=== PATIENT | male | born 1955 | race Two or more races ===

== ENCOUNTER 2018-11-23 16:26 | Emergency (ER) | payer MEDICARE, MEDICAID ==
[~2018-11-23] VITALS: Ht 172.7 cm; Wt 109.0 kg
[2018-11-23] MEDS ORDERED: HYDROcodone/acetaminophen 5mg/325mg tablet PO ONE (18:35)
[2018-11-23] MEDS ORDERED: bacitracin 15gm ointment TP ONE (18:35)
--- NOTE | 2018-11-23 19:08 | NUR ---
PT REFUSED TREATEMENT OF CLEANING STOMA, PT PLACED THE COLOSTOMY BAG HIMSELF. PT REFUSED TO REMOVE THE COLOSTOMY BAG FOR CLEANING. PT WAS GIVNE BACITRACIN AND ZINC OZIDE WITH INSTRUCTION ON HOW TO USE IT AT HIS NEXT COLOSTOMY BAG CHANGE.
[2018-11-23 19:23] VITALS: BP 176/100
[2018-11-23] MEDS ORDERED: zinc oxide ointment 30gm tube TP SCH (21:00)
== END 2018-11-23 19:25 | disposition home or self-care (01) ==
LOC: ER 16:27
DX: K94.09 Other complications of colostomy (principal); K94.19 Other complications of enterostomy; L98.9 Disorder of the skin and subcutaneous tissue, unspecified; L98.499 Non-pressure chronic ulcer of skin of other sites with unspecified severity; Z88.6 Allergy status to analgesic agent; Z88.8 Allergy status to other drugs, medicaments and biological substances
CPT/HCPCS: 99284

== ENCOUNTER 2019-04-08 21:03 | Inpatient (IN) | payer MEDICARE, MEDICAID ==
[~2019-04-08] VITALS: Ht 175.3 cm; Wt 106.4 kg
[2019-04-08] MEDS ORDERED: dicyclomine 10 MG capsule PO ONE (22:55)
[2019-04-08] MEDS ORDERED: oxyCODONE/APAP 10/325mg tablet PO ONE (22:55)
[2019-04-08 23:13] LABS: BASOPHILS % (AUTO) 0.3 % (0-1); EOSINOPHILS # (AUTO) 0.1 X10'3 (0-0.9); EOSINOPHILS % (AUTO) 0.4 % (0-6); HEMATOCRIT 43.4 % (42.0-52.0); HEMOGLOBIN 14.3 g/dl (14.0-17.9); LYMPHOCYTES # (AUTO) 1.4 X10'3 (1.1-4.8); LYMPHOCYTES % (AUTO) 10.9 % (21-51); MEAN CORPUSCULAR HEMOGLOBIN 29.5 PG (27.0-31.0); MEAN CORPUSCULAR VOLUME 89.4 FL (78-98); MEAN PLATELET VOLUME 10.1 FL (7.4-10.4); MONOCYTES % (AUTO) 7.9 % (2-12); NEUTROPHILS # (AUTO) 10.6 X10'3 (1.8-7.7); NEUTROPHILS % (AUTO) 80.5 % (42-75); PLATELET COUNT 175 X10'3 (140-440); RED BLOOD COUNT 4.86 X10'6 (4.70-6.10); RED CELL DISTRIBUTION WIDTH 14.9 % (11.5-14.5); WHITE BLOOD COUNT 13.1 X10'3 (4.5-11.0)
[2019-04-08 23:22] LABS: ALANINE AMINOTRANSFERASE 21 U/L (12-78); ALBUMIN 3.6 G/DL (3.4-5.0); ALBUMIN/GLOBULIN RATIO 0.9 (1.1-1.5); ALKALINE PHOSPHATASE 75 IU/L (46-116); ANION GAP 12 (8-16); ASPARTATE AMINO TRANSFERASE 10 U/L (10-37); BLOOD UREA NITROGEN 34 MG/DL (7-18); CALCIUM 8.3 MG/DL (8.5-10.1); CHLORIDE 105 MMOL/L (99-107); CREATININE 2.13 MG/DL (0.60-1.10); GLUCOSE 108 MG/DL (70-104); POTASSIUM 3.5 MMOL/L (3.5-5.1); SODIUM 138 MMOL/L (135-145); TOTAL CARBON DIOXIDE 21.2 MMOL/L (24-32); TOTAL PROTEIN 7.5 G/DL (6.4-8.2); eGFR 31 ML/MIN
[2019-04-09] MEDS ORDERED: piperacillin/tazo 3.375gm/50ml 50 ML IV ONE (01:55)
[2019-04-09] MEDS ORDERED: ondansetron/PF 4mg/2ml inj IV ONE (01:55)
[2019-04-09] MEDS ORDERED: HYDROmorphone 1 mg/ml syringe IV ONE (01:55)
[2019-04-09] MEDS ORDERED: morphine 10mg/ml inj. IV ONE (02:05)
[2019-04-09] MEDS ORDERED: mag hydrox/Alum hydrox/simeth 30ml oral suspension PO PRN (02:45)
[2019-04-09] MEDS ORDERED: magnesium hydroxide 30ml (MOM) UD suspension PO PRN (02:45)
[2019-04-09] MEDS ORDERED: acetaminophen 325mg tablet PO PRN ×2 (02:45)
[2019-04-09] MEDS ORDERED: morphine 2 MG/ML inj. syringe IV PRN (02:45)
[2019-04-09] MEDS ORDERED: ondansetron/PF 4mg/2ml inj IV PRN (02:45)
[2019-04-09] MEDS ORDERED: HYDROcodone/acetaminophen 5mg/325mg tablet PO PRN (02:45)
[2019-04-09 03:35] VITALS: BP 152/85
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
[2019-04-09] MEDS: dextrose 5%-1/2 normal saline 1,000 ML IV SCH ×2 (04:02→15:13)
[2019-04-09] MEDS: HYDROcodone/acetaminophen 10/325mg tab PO PRN ×3 (06:27→17:40)
--- NOTE | 2019-04-09 06:30 | NUR ---
Problems reprioritized. Patient report given, questions answered & plan of care reviewed with Dyana PEREZ.
[2019-04-09 07:00] VITALS: BP 144/72
[2019-04-09] MEDS: heparin, porcine 5000 units/ml vial SQ SCH ×2 (08:00→20:49)
[2019-04-09] MEDS ORDERED: ATEN-169 PO (08:12)
[2019-04-09] MEDS ORDERED: WARF1TAB83 PO (08:13)
[2019-04-09] MEDS ORDERED: ATOR10TA70 PO (08:14)
[2019-04-09] MEDS ORDERED: HYDR-3972 PO (08:14)
[2019-04-09] MEDS ORDERED: CHOL2000 PO (08:15)
[2019-04-09] MEDS ORDERED: VITA1TAB20 PO (08:15)
[2019-04-09] MEDS ORDERED: VITE1000C PO (08:16)
[2019-04-09] MEDS: morphine 2 MG/ML inj. syringe IV PRN ×2 (08:29→20:53)
[2019-04-09] MEDS ORDERED: bisacodyl 10mg suppository rectal RC PRN (11:30)
[2019-04-09] MEDS: LORazepam 1 MG tablet PO PRN (11:56)
[2019-04-09 12:12] VITALS: BP 129/70
[2019-04-09 13:01] LABS: BASOPHILS # (AUTO) 0.1 X10'3 (0-0.2); BASOPHILS % (AUTO) 0.5 % (0-1); EOSINOPHILS # (AUTO) 0.3 X10'3 (0-0.9); EOSINOPHILS % (AUTO) 2.4 % (0-6); HEMATOCRIT 40.4 % (42.0-52.0); HEMOGLOBIN 13.4 g/dl (14.0-17.9); LYMPHOCYTES # (AUTO) 2.1 X10'3 (1.1-4.8); MEAN CORPUSCULAR HEMOGLOBIN 29.9 PG (27.0-31.0); MEAN CORPUSCULAR HGB CONC 33.3 g/dL (33.0-36.5); MEAN CORPUSCULAR VOLUME 89.8 FL (78-98); MEAN PLATELET VOLUME 10.1 FL (7.4-10.4); MONOCYTES # (AUTO) 1.4 X10'3 (0-0.9); MONOCYTES % (AUTO) 11.2 % (2-12); NEUTROPHILS # (AUTO) 8.6 X10'3 (1.8-7.7); NEUTROPHILS % (AUTO) 68.9 % (42-75); PLATELET COUNT 175 X10'3 (140-440); WHITE BLOOD COUNT 12.5 X10'3 (4.5-11.0)
[2019-04-09 13:12] LABS: ANION GAP 12 (8-16); BLOOD UREA NITROGEN 33 MG/DL (7-18); BUN/CREATININE RATIO 15.3 (5.4-32.0); CHLORIDE 104 MMOL/L (99-107); CREATININE 2.16 MG/DL (0.60-1.10); GLUCOSE 109 MG/DL (70-104); POTASSIUM 3.3 MMOL/L (3.5-5.1); SODIUM 136 MMOL/L (135-145); TOTAL CARBON DIOXIDE 20.3 MMOL/L (24-32)
[2019-04-09 13:13] LABS: ALANINE AMINOTRANSFERASE 20 U/L (12-78); ALBUMIN 3.3 G/DL (3.4-5.0); ALBUMIN/GLOBULIN RATIO 0.9 (1.1-1.5); ALKALINE PHOSPHATASE 72 IU/L (46-116); ASPARTATE AMINO TRANSFERASE 12 U/L (10-37); BILIRUBIN,TOTAL 0.8 MG/DL (0.1-1.0); CALCIUM 8.2 MG/DL (8.5-10.1); TOTAL PROTEIN 6.9 G/DL (6.4-8.2); eGFR 31 ML/MIN
--- NOTE | 2019-04-09 18:43 | NUR ---
Problems reprioritized. Patient report given, questions answered & plan of care reviewed with Juan C PEREZ.
--- NOTE | 2019-04-09 19:02 | NUR ---
Patient in room [facility]. I have received report from Dyana PEREZ and had the opportunity to ask questions and assume patient care.
[2019-04-09 20:00] VITALS: BP 116/65
--- NOTE | 2019-04-09 20:00 | NUR ---
patient has colostomy but is also having bowel movements out of rectum, no sign og blood in stools, colostomy putting out minimal small amount of stool Addendum: 04/09/19 at 2316 by Juan C Schuster RN Amended: Links added.
[2019-04-09] MEDS: docusate sod 100mg capsule PO SCH (20:47)
[2019-04-09] MEDS: diatr meglu/diatrizoate 30ml oral sol.-(3 dose) bottle PO SCH (20:51)
[2019-04-09] MEDS ORDERED: potassium Cl 20 mEq SR tablet PO PRN ×2 (22:50)
[2019-04-09] MEDS ORDERED: potassium CL 10mEq/100ml bag 100 ML IV PRN (22:50)
[2019-04-10] VITALS: BP 151/83
[2019-04-10] MEDS: dextrose 5%-1/2 normal saline 1,000 ML IV SCH ×3 (01:04→19:40)
[2019-04-10] MEDS: morphine 2 MG/ML inj. syringe IV PRN ×4 (01:06→19:38)
[2019-04-10 05:30] LABS: BASOPHILS # (AUTO) 0.1 X10'3 (0-0.2); BASOPHILS % (AUTO) 0.9 % (0-1); EOSINOPHILS # (AUTO) 0.3 X10'3 (0-0.9); EOSINOPHILS % (AUTO) 2.8 % (0-6); HEMATOCRIT 40.7 % (42.0-52.0); HEMOGLOBIN 13.5 g/dl (14.0-17.9); MEAN CORPUSCULAR HEMOGLOBIN 29.9 PG (27.0-31.0); MEAN CORPUSCULAR HGB CONC 33.3 g/dL (33.0-36.5); MEAN CORPUSCULAR VOLUME 89.7 FL (78-98); MEAN PLATELET VOLUME 10.2 FL (7.4-10.4); MONOCYTES # (AUTO) 0.9 X10'3 (0-0.9); MONOCYTES % (AUTO) 10.2 % (2-12); NEUTROPHILS % (AUTO) 64.1 % (42-75); PLATELET COUNT 157 X10'3 (140-440); RED BLOOD COUNT 4.53 X10'6 (4.70-6.10); RED CELL DISTRIBUTION WIDTH 14.7 % (11.5-14.5); WHITE BLOOD COUNT 9.3 X10'3 (4.5-11.0)
--- NOTE | 2019-04-10 06:22 | NUR ---
Problems reprioritized. Patient report given, questions answered & plan of care reviewed with Susan PEREZ.
[2019-04-10 06:36] LABS: GLUCOSE 114 MG/DL (70-104); POTASSIUM 3.6 MMOL/L (3.5-5.1); SODIUM 139 MMOL/L (135-145)
[2019-04-10 06:37] LABS: ALBUMIN 3.1 G/DL (3.4-5.0); ANION GAP 10 (8-16); BLOOD UREA NITROGEN 25 MG/DL (7-18); BUN/CREATININE RATIO 12.5 (5.4-32.0); CALCIUM 9.1 MG/DL (8.5-10.1); CHLORIDE 107 MMOL/L (99-107); MAGNESIUM 2.2 MG/DL (1.5-2.4); TOTAL CARBON DIOXIDE 21.6 MMOL/L (24-32); eGFR 34 ML/MIN
[2019-04-10] MEDS: diatr meglu/diatrizoate 30ml oral sol.-(3 dose) bottle PO SCH ×2 (07:16→10:26)
[2019-04-10 07:22] VITALS: BP 113/59
[2019-04-10] MEDS: heparin, porcine 5000 units/ml vial SQ SCH ×2 (08:00→19:39)
[2019-04-10] MEDS: docusate sod 100mg capsule PO SCH ×2 (08:00→20:00)
[2019-04-10] MEDS ORDERED: pneumococcal 23-VAL P-sac vacc 25 mcg/0.5ml vial IMVAC ONE (10:00)
[2019-04-10 11:00] VITALS: BP 125/75
[2019-04-10] MEDS: HYDROcodone/acetaminophen 10/325mg tab PO PRN ×3 (11:10→21:44)
[2019-04-10] MEDS ORDERED: mineral oil 133ml enema RC PRN (17:00)
[2019-04-10 20:00] VITALS: BP 122/70
[2019-04-11] VITALS: BP 133/76
[2019-04-11] MEDS: HYDROcodone/acetaminophen 10/325mg tab PO PRN ×4 (01:59→21:46)
[2019-04-11] MEDS: morphine 2 MG/ML inj. syringe IV PRN ×2 (05:32→17:26)
[2019-04-11 06:18] LABS: ALBUMIN 2.8 G/DL (3.4-5.0); ANION GAP 11 (8-16); BLOOD UREA NITROGEN 21 MG/DL (7-18); BUN/CREATININE RATIO 12.6 (5.4-32.0); CALCIUM 8.1 MG/DL (8.5-10.1); CHLORIDE 110 MMOL/L (99-107); CREATININE 1.67 MG/DL (0.60-1.10); GLUCOSE 102 MG/DL (70-104); POTASSIUM 3.6 MMOL/L (3.5-5.1); SODIUM 142 MMOL/L (135-145); TOTAL CARBON DIOXIDE 21.4 MMOL/L (24-32); eGFR 41 ML/MIN
--- NOTE | 2019-04-11 06:22 | NUR ---
Patient in room [facility]. I have received report from ANA Rivas and had the opportunity to ask questions and assume patient care.
[2019-04-11 07:04] VITALS: BP 160/76
[2019-04-11 07:09] LABS: BASOPHILS # (AUTO) 0.1 X10'3 (0-0.2); BASOPHILS % (AUTO) 0.9 % (0-1); EOSINOPHILS # (AUTO) 0.4 X10'3 (0-0.9); EOSINOPHILS % (AUTO) 6.1 % (0-6); HEMATOCRIT 40.1 % (42.0-52.0); HEMOGLOBIN 13.3 g/dl (14.0-17.9); LYMPHOCYTES # (AUTO) 2.2 X10'3 (1.1-4.8); LYMPHOCYTES % (AUTO) 32.1 % (21-51); MEAN CORPUSCULAR HEMOGLOBIN 29.7 PG (27.0-31.0); MEAN CORPUSCULAR HGB CONC 33.1 g/dL (33.0-36.5); MEAN CORPUSCULAR VOLUME 89.7 FL (78-98); MEAN PLATELET VOLUME 10.3 FL (7.4-10.4); MONOCYTES # (AUTO) 0.6 X10'3 (0-0.9); MONOCYTES % (AUTO) 8.7 % (2-12); NEUTROPHILS # (AUTO) 3.5 X10'3 (1.8-7.7); NEUTROPHILS % (AUTO) 52.2 % (42-75); PLATELET COUNT 156 X10'3 (140-440); RED BLOOD COUNT 4.47 X10'6 (4.70-6.10); RED CELL DISTRIBUTION WIDTH 15.2 % (11.5-14.5); WHITE BLOOD COUNT 6.7 X10'3 (4.5-11.0)
--- NOTE | 2019-04-11 08:00 | NUR ---
Notified Dr. Mahajan of patient's coumadin being held, as well as atenolol. Per Dr. Mahajan, will continue to hold coumadin and continue the atenolol on his med rec.
[2019-04-11] MEDS ORDERED: ATEN-169 PO ×2 (08:19→08:20)
[2019-04-11] MEDS: heparin, porcine 5000 units/ml vial SQ SCH ×2 (08:24→20:15)
[2019-04-11] MEDS: docusate sod 100mg capsule PO SCH ×2 (08:24→20:00)
[2019-04-11] MEDS: dextrose 5%-1/2 normal saline 1,000 ML IV SCH ×3 (08:28→22:00)
[2019-04-11 11:00] VITALS: BP 112/55
[2019-04-11] MEDS: atenolol 50mg tablet PO SCH (11:32)
[2019-04-11] MEDS ORDERED: hyoscyamine 0.125mg TAB.SUBL SL PRN (14:45)
[2019-04-11] MEDS ORDERED: PEG 3350/Na sulf,bicarb,Cl/KCl oral sol 4 liter bottle PO ONE (15:00)
--- NOTE | 2019-04-11 18:30 | NUR ---
Problems reprioritized. Patient report given, questions answered & plan of care reviewed with Whitney Olivarez RN.
--- NOTE | 2019-04-11 18:45 | NUR ---
Problems reprioritized. Patient report given, questions answered & plan of care reviewed with Whitney Olivarez RN.
--- NOTE | 2019-04-11 18:47 | NUR ---
Patient in room [facility]. I have received report from ANA Harmon and had the opportunity to ask questions and assume patient care. Addendum: 04/11/19 at 1848 by Kathy Botello RN Amended: Links added.
[2019-04-11 20:00] VITALS: BP 128/51
[2019-04-12] VITALS: BP 166/76
[2019-04-12] MEDS: morphine 2 MG/ML inj. syringe IV PRN ×4 (01:47→22:40)
[2019-04-12 05:12] LABS: BASOPHILS # (AUTO) 0.1 X10'3 (0-0.2); EOSINOPHILS # (AUTO) 0.3 X10'3 (0-0.9); EOSINOPHILS % (AUTO) 4.9 % (0-6); HEMATOCRIT 40.1 % (42.0-52.0); HEMOGLOBIN 13.4 g/dl (14.0-17.9); LYMPHOCYTES # (AUTO) 1.9 X10'3 (1.1-4.8); LYMPHOCYTES % (AUTO) 32.5 % (21-51); MEAN CORPUSCULAR HEMOGLOBIN 29.7 PG (27.0-31.0); MEAN CORPUSCULAR HGB CONC 33.4 g/dL (33.0-36.5); MEAN PLATELET VOLUME 10.4 FL (7.4-10.4); MONOCYTES # (AUTO) 0.4 X10'3 (0-0.9); MONOCYTES % (AUTO) 7.7 % (2-12); NEUTROPHILS # (AUTO) 3.1 X10'3 (1.8-7.7); NEUTROPHILS % (AUTO) 53.9 % (42-75); PLATELET COUNT 172 X10'3 (140-440); RED BLOOD COUNT 4.51 X10'6 (4.70-6.10); RED CELL DISTRIBUTION WIDTH 14.9 % (11.5-14.5); WHITE BLOOD COUNT 5.8 X10'3 (4.5-11.0)
[2019-04-12 05:17] LABS: ALBUMIN 3.1 G/DL (3.4-5.0); ANION GAP 5 (8-16); BLOOD UREA NITROGEN 14 MG/DL (7-18); BUN/CREATININE RATIO 9.2 (5.4-32.0); CALCIUM 8.4 MG/DL (8.5-10.1); CHLORIDE 111 MMOL/L (99-107); CREATININE 1.52 MG/DL (0.60-1.10); GLUCOSE 102 MG/DL (70-104); MAGNESIUM 1.9 MG/DL (1.5-2.4); SODIUM 142 MMOL/L (135-145); TOTAL CARBON DIOXIDE 25.7 MMOL/L (24-32); eGFR 46 ML/MIN
--- NOTE | 2019-04-12 06:30 | NUR ---
Patient in room [facility]. I have received report from RENAY Perdomo and had the opportunity to ask questions and assume patient care.
--- NOTE | 2019-04-12 06:32 | NUR ---
Problems reprioritized. Patient report given, questions answered & plan of care reviewed with ANA Montano.
[2019-04-12] MEDS: docusate sod 100mg capsule PO SCH ×2 (06:53→20:35)
[2019-04-12] MEDS: heparin, porcine 5000 units/ml vial SQ SCH ×2 (06:54→20:36)
[2019-04-12] MEDS: atenolol 50mg tablet PO SCH (06:54)
[2019-04-12 06:56] VITALS: BP 152/69
[2019-04-12] MEDS: dextrose 5%-1/2 normal saline 1,000 ML IV SCH ×2 (08:46→22:35)
[2019-04-12 11:19] VITALS: BP 153/81
[2019-04-12] MEDS: HYDROcodone/acetaminophen 10/325mg tab PO PRN ×2 (12:12→22:33)
[2019-04-12 14:50] VITALS: BP 164/79
[2019-04-12] MEDS ORDERED: fentaNYL/PF 50MCG/1 ML 2ML syringe ONE (14:51)
[2019-04-12] MEDS ORDERED: MIDAZolam 5mg/5ml vial ONE (14:52)
[2019-04-12] MEDS ORDERED: magnesium citrate 296ml oral solution PO ONE (17:25)
[2019-04-12 18:00] VITALS: BP 153/72
--- NOTE | 2019-04-12 18:53 | NUR ---
Patient in room [facility]. I have received report from ANA Montano and had the opportunity to ask questions and assume patient care. Addendum: 04/12/19 at 1853 by Kathy Botello RN Amended: Links added.
[2019-04-12] MEDS: bisacodyl 5mg tablet.DR PO SCH (20:35)
[2019-04-13] VITALS: BP 139/75
[2019-04-13] MEDS: HYDROcodone/acetaminophen 10/325mg tab PO PRN ×4 (01:51→19:53)
[2019-04-13] MEDS ORDERED: PEG 3350/Na sulf,bicarb,Cl/KCl oral sol 4 liter bottle PO ONE (04:00)
[2019-04-13] MEDS: morphine 2 MG/ML inj. syringe IV PRN ×2 (04:40→15:48)
[2019-04-13 05:18] LABS: BASOPHILS # (AUTO) 0.1 X10'3 (0-0.2); BASOPHILS % (AUTO) 0.9 % (0-1); EOSINOPHILS # (AUTO) 0.2 X10'3 (0-0.9); EOSINOPHILS % (AUTO) 3.7 % (0-6); HEMATOCRIT 38.6 % (42.0-52.0); HEMOGLOBIN 12.7 g/dl (14.0-17.9); LYMPHOCYTES # (AUTO) 2.1 X10'3 (1.1-4.8); MEAN CORPUSCULAR HEMOGLOBIN 29.6 PG (27.0-31.0); MEAN CORPUSCULAR HGB CONC 32.9 g/dL (33.0-36.5); MEAN PLATELET VOLUME 10.6 FL (7.4-10.4); MONOCYTES # (AUTO) 0.5 X10'3 (0-0.9); MONOCYTES % (AUTO) 7.4 % (2-12); NEUTROPHILS # (AUTO) 3.7 X10'3 (1.8-7.7); PLATELET COUNT 173 X10'3 (140-440); RED CELL DISTRIBUTION WIDTH 14.7 % (11.5-14.5); WHITE BLOOD COUNT 6.6 X10'3 (4.5-11.0)
[2019-04-13 06:02] LABS: ALBUMIN 2.9 G/DL (3.4-5.0); ANION GAP 8 (8-16); BLOOD UREA NITROGEN 13 MG/DL (7-18); BUN/CREATININE RATIO 9.7 (5.4-32.0); CALCIUM 7.8 MG/DL (8.5-10.1); CHLORIDE 108 MMOL/L (99-107); CREATININE 1.34 MG/DL (0.60-1.10); GLUCOSE 106 MG/DL (70-104); MAGNESIUM 1.7 MG/DL (1.5-2.4); POTASSIUM 3.6 MMOL/L (3.5-5.1); SODIUM 141 MMOL/L (135-145); eGFR 53 ML/MIN
--- NOTE | 2019-04-13 06:26 | NUR ---
Problems reprioritized. Patient report given, questions answered & plan of care reviewed with ANA GAYTAN Addendum: 04/13/19 at 0657 by Kathy Botello RN Amended: Links added.
--- NOTE | 2019-04-13 06:45 | NUR ---
Patient in room [facility]. I have received report from siria lan rn and had the opportunity to ask questions and assume patient care.
[2019-04-13 07:00] VITALS: BP 158/86
[2019-04-13] MEDS: atenolol 50mg tablet PO SCH (07:27)
[2019-04-13] MEDS: heparin, porcine 5000 units/ml vial SQ SCH ×2 (07:28→19:55)
[2019-04-13] MEDS: bisacodyl 5mg tablet.DR PO SCH ×2 (07:40→19:58)
[2019-04-13] MEDS: docusate sod 100mg capsule PO SCH ×2 (07:40→19:55)
[2019-04-13] MEDS: dextrose 5%-1/2 normal saline 1,000 ML IV SCH ×2 (07:44→17:28)
[2019-04-13 11:00] VITALS: BP 167/86
--- NOTE | 2019-04-13 15:03 | NUR ---
Patient in room [facility]. I have received report from FIDEL PEREZ and had the opportunity to ask questions and assume patient care.
[2019-04-13] MEDS ORDERED: magnesium citrate 296ml oral solution PO ONE ×3 (15:45→18:00)
--- NOTE | 2019-04-13 16:00 | NUR ---
Patient in room [facility]. I have received report from Sherin PEREZ and had the opportunity to ask questions and assume patient care.
--- NOTE | 2019-04-13 17:56 | NUR ---
Patient given mag citrate, but still not clear with BM. Gi Lab called spoke with Bess PEREZ. Patient will not have colonoscopy tonight is for repeat mag citrate and possibly in Am if BM clear, per Dr Hamilton.
[2019-04-13 18:00] VITALS: BP 150/78
--- NOTE | 2019-04-13 18:10 | NUR ---
Patient in room [facility]. I have received report from ANA Tabor and had the opportunity to ask questions and assume patient care.
--- NOTE | 2019-04-13 18:42 | NUR ---
Problems reprioritized. Patient report given, questions answered & plan of care reviewed with Lion PEREZ.
[2019-04-14] VITALS (12 sets, daily range): BP systolic 121–182; BP diastolic 58–91
[2019-04-14] MEDS: morphine 2 MG/ML inj. syringe IV PRN ×2 (00:05→06:40)
[2019-04-14] MEDS: HYDROcodone/acetaminophen 10/325mg tab PO PRN ×4 (03:43→22:42)
[2019-04-14] MEDS: dextrose 5%-1/2 normal saline 1,000 ML IV SCH ×3 (03:45→21:23)
[2019-04-14 05:28] LABS: ALBUMIN 3.2 G/DL (3.4-5.0); ANION GAP 9 (8-16); BLOOD UREA NITROGEN 9 MG/DL (7-18); BUN/CREATININE RATIO 6.3 (5.4-32.0); CALCIUM 8.8 MG/DL (8.5-10.1); CHLORIDE 108 MMOL/L (99-107); CREATININE 1.44 MG/DL (0.60-1.10); GLUCOSE 109 MG/DL (70-104); POTASSIUM 3.8 MMOL/L (3.5-5.1); SODIUM 142 MMOL/L (135-145); TOTAL CARBON DIOXIDE 24.6 MMOL/L (24-32); eGFR 49 ML/MIN
--- NOTE | 2019-04-14 06:20 | NUR ---
Patient in room [facility]. I have received report from Lion RN and Shilpa RN and had the opportunity to ask questions and assume patient care.
--- NOTE | 2019-04-14 06:36 | NUR ---
I have reviewed and agree with all interventions, assessments performed and documented by ANA Seymour. Problems reprioritized. Patient report given, questions answered & plan of care reviewed with ANA Tilley.
--- NOTE | 2019-04-14 06:43 | NUR ---
Problems reprioritized. Patient report given, questions answered & plan of care reviewed with pablo FLOYD.
[2019-04-14] MEDS: docusate sod 100mg capsule PO SCH ×2 (07:57→20:59)
[2019-04-14] MEDS: bisacodyl 5mg tablet.DR PO SCH ×2 (07:58→20:59)
[2019-04-14] MEDS: atenolol 50mg tablet PO SCH (07:59)
[2019-04-14] MEDS: heparin, porcine 5000 units/ml vial SQ SCH ×2 (08:00→21:00)
[2019-04-14] MEDS: lisinopril 20mg tablet PO SCH (09:50)
[2019-04-14] MEDS ORDERED: fentaNYL/PF 50MCG/1 ML 2ML syringe ONE (11:34)
[2019-04-14] MEDS ORDERED: MIDAZolam 5mg/5ml vial ONE (11:34)
[2019-04-14] MEDS ORDERED: magnesium citrate 296ml oral solution PO ONE (12:55)
[2019-04-14] MEDS ORDERED: PEG 3350/Na sulf,bicarb,Cl/KCl oral sol 4 liter bottle PO ONE (12:55)
--- NOTE | 2019-04-14 14:00 | NUR ---
Patient's blood pressure was elevated this am at 182/91. Had to hold his metoprolol because his HR was 58. I re-checked it before giving him his medications as well; it was still high 50's. Paged Dr. Blunt and he changed it to lisinopril. I didn't get a chance to re-check the BP because the patient went to the GI lab. Patient's pressure is normal after returning from the GI lab.
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
[2019-04-14] MEDS ORDERED: HYDROcodone/acetaminophen 5mg/325mg tablet PO PRN (14:55)
--- NOTE | 2019-04-14 16:30 | NUR ---
Spoke with Dr. Devine because the enema orders were not very clear. He also confirmed that he wanted the patient to have a full liquid diet for dinner tonight and then go back to clear liquids tomorrow. He confirmed another mag-citrate and Go-lytely. He was okay with starting with the Greenwood flush through the stoma and then using the soap suds through the rectum if the Greenwood flush isn't effective. He said as many times as the patient can tolerate is okay.
--- NOTE | 2019-04-14 18:35 | NUR ---
Patient in room [facility]. I have received report from Treva PEREZ and had the opportunity to ask questions and assume patient care. Patient resting eyes closed respirations even. Will continue to monitor.
--- NOTE | 2019-04-14 18:35 | NUR ---
Problems reprioritized. Patient report given, questions answered & plan of care reviewed with ANA Dudley.
[2019-04-14] MEDS: sennosides/docusate sodium tablet PO SCH (20:59)
--- NOTE | 2019-04-14 23:00 | NUR ---
Patient started go-lytely bottle and agreed to allow soap suds enema. Unable to instill soap suds at first dropped bucket to allow pressure to release and then able to instill. Patient held fluid for 5-10 minutes and then had a small liquid brown bowel movement in commode. Tolerated well, states slight burning but no redness or blood noted. Will continue to monitor.
[2019-04-15] VITALS: BP 153/85
[2019-04-15] MEDS: HYDROcodone/acetaminophen 10/325mg tab PO PRN ×4 (04:48→23:52)
--- NOTE | 2019-04-15 06:42 | NUR ---
Problems reprioritized. Patient report given, questions answered & plan of care reviewed with Sharita RN. Resting in bed, watching tv, will continue to monitor
--- NOTE | 2019-04-15 06:44 | NUR ---
Patient in room [facility]. I have received report from Octavia PEREZ and had the opportunity to ask questions and assume patient care.
[2019-04-15 07:00] VITALS: BP 162/70
[2019-04-15] MEDS: heparin, porcine 5000 units/ml vial SQ SCH ×2 (08:50→20:52)
[2019-04-15] MEDS: sennosides/docusate sodium tablet PO SCH ×2 (08:51→20:53)
[2019-04-15] MEDS: lisinopril 20mg tablet PO SCH (08:51)
[2019-04-15] MEDS: bisacodyl 5mg tablet.DR PO SCH ×2 (08:51→20:54)
[2019-04-15] MEDS: docusate sod 100mg capsule PO SCH ×2 (08:51→20:54)
[2019-04-15] MEDS: atenolol 50mg tablet PO SCH (08:52)
[2019-04-15] MEDS: dextrose 5%-1/2 normal saline 1,000 ML IV SCH ×2 (08:54→18:37)
[2019-04-15 11:00] VITALS: BP 144/80
[2019-04-15] MEDS ORDERED: hyoscyamine 0.125mg TAB.SUBL SL PRN (12:10)
[2019-04-15] MEDS: morphine 4 MG/ML inj SYRINge IV PRN ×2 (15:09→20:58)
--- NOTE | 2019-04-15 16:19 | NUR ---
Patient still not clear of stool yet at this time. Discussed with patient about Greenwood flush enema to help clearing the BM, patient refused. He states "you can't put it in the stoma, it's too small, you will poke my organs!" Offered mineral oil enema but patient did not want it either, he states "they tried it before, it didn't work!"
--- NOTE | 2019-04-15 18:40 | NUR ---
Patient in room [facility]. I have received report from Hung PEREZ and had the opportunity to ask questions and assume patient care. Patient receiving dinner tray, will continue to monitor.
--- NOTE | 2019-04-15 18:42 | NUR ---
Problems reprioritized. Patient report given, questions answered & plan of care reviewed with Octavia PEREZ.
[2019-04-15 20:00] VITALS: BP 119/65
[2019-04-16] VITALS: BP 138/64
[2019-04-16] MEDS: morphine 4 MG/ML inj SYRINge IV PRN ×4 (03:18→19:52)
[2019-04-16] MEDS: dextrose 5%-1/2 normal saline 1,000 ML IV SCH ×2 (05:13→15:43)
[2019-04-16] MEDS: HYDROcodone/acetaminophen 10/325mg tab PO PRN ×3 (06:02→22:36)
--- NOTE | 2019-04-16 06:28 | NUR ---
Problems reprioritized. Patient report given, questions answered & plan of care reviewed with Hung PEREZ. Patient provided pain medication.
--- NOTE | 2019-04-16 06:39 | NUR ---
Patient in room [facility]. I have received report from Octavia PEREZ and had the opportunity to ask questions and assume patient care.
[2019-04-16 07:00] VITALS: BP 157/72
[2019-04-16] MEDS: heparin, porcine 5000 units/ml vial SQ SCH ×2 (08:00→20:20)
[2019-04-16] MEDS: atenolol 50mg tablet PO SCH (08:00)
[2019-04-16] MEDS: sennosides/docusate sodium tablet PO SCH ×2 (08:15→20:19)
[2019-04-16] MEDS: bisacodyl 5mg tablet.DR PO SCH ×2 (08:16→20:19)
[2019-04-16] MEDS: docusate sod 100mg capsule PO SCH ×2 (08:16→20:19)
[2019-04-16] MEDS: lisinopril 20mg tablet PO SCH (08:17)
[2019-04-16 11:00] VITALS: BP 141/82
--- NOTE | 2019-04-16 13:01 | NUR ---
JEANNINE PEREZ ATTEMPTED EXTENDED PIV WITH NO SUCCESS. PT STATES HE WILL NOT ALLOW ANOTHER STICK. RN NOTIFIED OF PTS NON COMPLIANCE. AINSLEY PEREZ Addendum: 04/16/19 at 1316 by Yamilet Rios RN Amended: Links added.
[2019-04-16] MEDS: LORazepam 1 MG tablet PO PRN (13:53)
[2019-04-16] MEDS ORDERED: PEG 3350/Na sulf,bicarb,Cl/KCl oral sol 4 liter bottle PO ONE (14:50)
--- NOTE | 2019-04-16 15:50 | NUR ---
During rounds, patient was chewing. When I asked him if he is eating something, he said no then after a minute he admitted he is eating a "few" pieces of cheetos. I reminded patient that he is supposed to be on clear liquid because we are trying to clear his bowel for colonoscopy.
[2019-04-16 16:08] LABS: BASOPHILS # (AUTO) 0.1 X10'3 (0-0.2); EOSINOPHILS # (AUTO) 0.3 X10'3 (0-0.9); EOSINOPHILS % (AUTO) 3.7 % (0-6); HEMATOCRIT 37.4 % (42.0-52.0); HEMOGLOBIN 12.5 g/dl (14.0-17.9); LYMPHOCYTES # (AUTO) 2.6 X10'3 (1.1-4.8); LYMPHOCYTES % (AUTO) 35.6 % (21-51); MEAN CORPUSCULAR HGB CONC 33.5 g/dL (33.0-36.5); MEAN CORPUSCULAR VOLUME 89.4 FL (78-98); MEAN PLATELET VOLUME 10.2 FL (7.4-10.4); MONOCYTES # (AUTO) 0.7 X10'3 (0-0.9); MONOCYTES % (AUTO) 9.8 % (2-12); NEUTROPHILS # (AUTO) 3.6 X10'3 (1.8-7.7); NEUTROPHILS % (AUTO) 49.9 % (42-75); PLATELET COUNT 180 X10'3 (140-440); RED BLOOD COUNT 4.18 X10'6 (4.70-6.10); RED CELL DISTRIBUTION WIDTH 15.2 % (11.5-14.5); WHITE BLOOD COUNT 7.2 X10'3 (4.5-11.0)
[2019-04-16 16:29] LABS: ALANINE AMINOTRANSFERASE 24 U/L (12-78); ALBUMIN 3.1 G/DL (3.4-5.0); ALKALINE PHOSPHATASE 62 IU/L (46-116); ANION GAP 7 (8-16); ASPARTATE AMINO TRANSFERASE 12 U/L (10-37); BILIRUBIN,TOTAL 0.3 MG/DL (0.1-1.0); BLOOD UREA NITROGEN 11 MG/DL (7-18); BUN/CREATININE RATIO 7.5 (5.4-32.0); CALCIUM 8.1 MG/DL (8.5-10.1); CHLORIDE 107 MMOL/L (99-107); CREATININE 1.46 MG/DL (0.60-1.10); GLUCOSE 87 MG/DL (70-104); POTASSIUM 3.7 MMOL/L (3.5-5.1); SODIUM 141 MMOL/L (135-145); TOTAL CARBON DIOXIDE 27.4 MMOL/L (24-32); TOTAL PROTEIN 6.3 G/DL (6.4-8.2); eGFR 48 ML/MIN
--- NOTE | 2019-04-16 18:23 | NUR ---
Problems reprioritized. Patient report given, questions answered & plan of care reviewed with Young PEREZ.
[2019-04-16 18:50] VITALS: BP 98/42
[2019-04-17] VITALS: BP 133/70
[2019-04-17] MEDS: morphine 4 MG/ML inj SYRINge IV PRN ×4 (00:59→20:48)
[2019-04-17] MEDS: dextrose 5%-1/2 normal saline 1,000 ML IV SCH ×3 (00:59→19:50)
[2019-04-17 05:31] LABS: HEMATOCRIT 34.4 % (42.0-52.0); HEMOGLOBIN 11.7 g/dl (14.0-17.9); MEAN CORPUSCULAR HEMOGLOBIN 30.1 PG (27.0-31.0); MEAN CORPUSCULAR VOLUME 88.5 FL (78-98); MEAN PLATELET VOLUME 10.5 FL (7.4-10.4); PLATELET COUNT 166 X10'3 (140-440); RED BLOOD COUNT 3.88 X10'6 (4.70-6.10); WHITE BLOOD COUNT 6.5 X10'3 (4.5-11.0)
[2019-04-17] MEDS: HYDROcodone/acetaminophen 10/325mg tab PO PRN ×4 (05:41→18:34)
[2019-04-17 05:45] LABS: ALANINE AMINOTRANSFERASE 21 U/L (12-78); ALBUMIN 2.8 G/DL (3.4-5.0); ALKALINE PHOSPHATASE 57 IU/L (46-116); ANION GAP 6 (8-16); ASPARTATE AMINO TRANSFERASE 12 U/L (10-37); BILIRUBIN,TOTAL 0.2 MG/DL (0.1-1.0); BLOOD UREA NITROGEN 9 MG/DL (7-18); CALCIUM 8.1 MG/DL (8.5-10.1); CHLORIDE 110 MMOL/L (99-107); CREATININE 1.51 MG/DL (0.60-1.10); GLUCOSE 100 MG/DL (70-104); POTASSIUM 3.8 MMOL/L (3.5-5.1); SODIUM 142 MMOL/L (135-145); TOTAL CARBON DIOXIDE 26.1 MMOL/L (24-32); TOTAL PROTEIN 5.6 G/DL (6.4-8.2); eGFR 47 ML/MIN
--- NOTE | 2019-04-17 06:42 | NUR ---
Problems reprioritized. Patient report given, questions answered & plan of care reviewed with GHAZALA. Addendum: 04/17/19 at 0642 by Timoteo Hinton RN Amended: Links added.
[2019-04-17 07:00] VITALS: BP 137/75
[2019-04-17] MEDS: atenolol 50mg tablet PO SCH (08:00)
[2019-04-17] MEDS: docusate sod 100mg capsule PO SCH ×2 (08:05→20:44)
[2019-04-17] MEDS: sennosides/docusate sodium tablet PO SCH ×2 (08:06→20:44)
[2019-04-17] MEDS: bisacodyl 5mg tablet.DR PO SCH ×4 (08:06→20:52)
[2019-04-17] MEDS: lisinopril 20mg tablet PO SCH (08:08)
[2019-04-17] MEDS: heparin, porcine 5000 units/ml vial SQ SCH ×2 (08:10→20:46)
[2019-04-17 11:00] VITALS: BP 141/60
[2019-04-17] MEDS ORDERED: PEG 3350/Na sulf,bicarb,Cl/KCl oral sol 4 liter bottle PO ONE (17:45)
[2019-04-17 18:00] VITALS: BP 140/71
--- NOTE | 2019-04-17 18:17 | NUR ---
Problems reprioritized. Patient report given, questions answered & plan of care reviewed with Brianne Decker RN.
--- NOTE | 2019-04-17 18:30 | NUR ---
Patient in room [facility]. I have received report from GHAZALA PEREZ and had the opportunity to ask questions and assume patient care.
[2019-04-18] VITALS: BP 149/77
[2019-04-18] MEDS: HYDROcodone/acetaminophen 10/325mg tab PO PRN ×4 (01:09→19:53)
[2019-04-18] MEDS: morphine 4 MG/ML inj SYRINge IV PRN ×4 (02:23→22:30)
[2019-04-18 05:55] LABS: HEMATOCRIT 35.6 % (42.0-52.0); HEMOGLOBIN 11.9 g/dl (14.0-17.9); MEAN CORPUSCULAR HEMOGLOBIN 29.9 PG (27.0-31.0); MEAN CORPUSCULAR HGB CONC 33.5 g/dL (33.0-36.5); MEAN PLATELET VOLUME 10.1 FL (7.4-10.4); PLATELET COUNT 169 X10'3 (140-440); RED BLOOD COUNT 3.99 X10'6 (4.70-6.10); WHITE BLOOD COUNT 6.5 X10'3 (4.5-11.0)
[2019-04-18 06:23] LABS: ALANINE AMINOTRANSFERASE 20 U/L (12-78); ALBUMIN/GLOBULIN RATIO 1.1 (1.1-1.5); ALKALINE PHOSPHATASE 64 IU/L (46-116); ANION GAP 7 (8-16); ASPARTATE AMINO TRANSFERASE 13 U/L (10-37); BILIRUBIN,TOTAL 0.4 MG/DL (0.1-1.0); BLOOD UREA NITROGEN 8 MG/DL (7-18); BUN/CREATININE RATIO 5.1 (5.4-32.0); CALCIUM 8.2 MG/DL (8.5-10.1); CHLORIDE 109 MMOL/L (99-107); CREATININE 1.57 MG/DL (0.60-1.10); GLUCOSE 100 MG/DL (70-104); POTASSIUM 3.8 MMOL/L (3.5-5.1); SODIUM 141 MMOL/L (135-145); TOTAL CARBON DIOXIDE 25.2 MMOL/L (24-32); TOTAL PROTEIN 5.8 G/DL (6.4-8.2); eGFR 45 ML/MIN
--- NOTE | 2019-04-18 06:30 | NUR ---
Problems reprioritized. Patient report given, questions answered & plan of care reviewed with CHAVO PEREZ.
[2019-04-18 07:00] VITALS: BP 150/73
[2019-04-18] MEDS: sennosides/docusate sodium tablet PO SCH ×2 (07:54→19:34)
[2019-04-18] MEDS: bisacodyl 5mg tablet.DR PO SCH ×3 (07:54→22:30)
[2019-04-18] MEDS: docusate sod 100mg capsule PO SCH ×2 (07:54→19:34)
[2019-04-18] MEDS: atenolol 50mg tablet PO SCH (07:56)
[2019-04-18] MEDS: lisinopril 20mg tablet PO SCH (07:56)
[2019-04-18] MEDS: dextrose 5%-1/2 normal saline 1,000 ML IV SCH ×2 (07:58→17:13)
[2019-04-18] MEDS: heparin, porcine 5000 units/ml vial SQ SCH ×2 (08:00→19:41)
--- NOTE | 2019-04-18 10:32 | NUR ---
Reassessment: Pt with colostomy however still with stools from rectum with brown like coffee stools and continues drinking Golytely in prep for colonoscopy per MD notes. Pt also receiving routine Colace, Senna-S, and Dulcolax. Pt with 1500 mL stool output 04/17 per I&O. Pt remains on liquid diet in prep for colonoscopy. Pt has been on liquid diet for 9 days. Unfortunately diet can't be advanced at this time d/t need for colonoscopy. Will continue to follow. Rec: 1. advance diet per MD to low residue 2. monitor for ONS needs 3. weekly wts Addendum: 04/18/19 at [address] Amended: Links added.
[2019-04-18 11:00] VITALS: BP 167/82
[2019-04-18 18:00] VITALS: BP 147/77
--- NOTE | 2019-04-18 18:20 | NUR ---
Patient in room [facility]. I have received report from ANA Rodriguez and had the opportunity to ask questions and assume patient care.
--- NOTE | 2019-04-18 18:44 | NUR ---
Problems reprioritized. Patient report given, questions answered & plan of care reviewed with ANA Seymour.
[2019-04-19] VITALS: BP 158/76
[2019-04-19] MEDS: morphine 4 MG/ML inj SYRINge IV PRN ×5 (02:39→23:29)
[2019-04-19] MEDS: dextrose 5%-1/2 normal saline 1,000 ML IV SCH ×3 (02:40→22:43)
[2019-04-19 05:49] LABS: HEMATOCRIT 37.1 % (42.0-52.0); HEMOGLOBIN 12.5 g/dl (14.0-17.9); MEAN CORPUSCULAR HEMOGLOBIN 29.8 PG (27.0-31.0); MEAN CORPUSCULAR HGB CONC 33.7 g/dL (33.0-36.5); MEAN CORPUSCULAR VOLUME 88.6 FL (78-98); MEAN PLATELET VOLUME 9.9 FL (7.4-10.4); PLATELET COUNT 164 X10'3 (140-440); RED BLOOD COUNT 4.19 X10'6 (4.70-6.10); RED CELL DISTRIBUTION WIDTH 15.1 % (11.5-14.5); WHITE BLOOD COUNT 6.7 X10'3 (4.5-11.0)
[2019-04-19 06:03] LABS: ALANINE AMINOTRANSFERASE 21 U/L (12-78); ALKALINE PHOSPHATASE 67 IU/L (46-116); ANION GAP 8 (8-16); ASPARTATE AMINO TRANSFERASE 13 U/L (10-37); BILIRUBIN,TOTAL 0.4 MG/DL (0.1-1.0); BLOOD UREA NITROGEN 9 MG/DL (7-18); BUN/CREATININE RATIO 6.1 (5.4-32.0); CALCIUM 8.3 MG/DL (8.5-10.1); CHLORIDE 110 MMOL/L (99-107); CREATININE 1.47 MG/DL (0.60-1.10); GLUCOSE 102 MG/DL (70-104); POTASSIUM 3.9 MMOL/L (3.5-5.1); SODIUM 142 MMOL/L (135-145); TOTAL CARBON DIOXIDE 23.9 MMOL/L (24-32); eGFR 48 ML/MIN
--- NOTE | 2019-04-19 06:34 | NUR ---
Problems reprioritized. Patient report given, questions answered & plan of care reviewed with ANA Silvestre.
--- NOTE | 2019-04-19 06:37 | NUR ---
Patient in room [facility]. I have received report from ANA Seymour and had the opportunity to ask questions and assume patient care.
[2019-04-19] MEDS: docusate sod 100mg capsule PO SCH ×2 (07:22→21:08)
[2019-04-19] MEDS: sennosides/docusate sodium tablet PO SCH ×2 (07:22→21:08)
[2019-04-19] MEDS: bisacodyl 5mg tablet.DR PO SCH ×3 (07:23→21:40)
[2019-04-19] MEDS: lisinopril 20mg tablet PO SCH (07:25)
[2019-04-19] MEDS: atenolol 50mg tablet PO SCH (07:25)
[2019-04-19 08:00] VITALS: BP 158/78
[2019-04-19] MEDS: heparin, porcine 5000 units/ml vial SQ SCH ×2 (08:00→21:08)
[2019-04-19 12:00] VITALS: BP 150/86
[2019-04-19 18:00] VITALS: BP 158/66
--- NOTE | 2019-04-19 18:17 | NUR ---
Patient in room [facility]. I have received report from ANA SANTOS and had the opportunity to ask questions and assume patient care.
--- NOTE | 2019-04-19 18:42 | NUR ---
Problems reprioritized. Patient report given, questions answered & plan of care reviewed with ANA Seymour.
[2019-04-19] MEDS: HYDROcodone/acetaminophen 10/325mg tab PO PRN (21:41)
[2019-04-20] VITALS: BP 137/77
[2019-04-20] MEDS: HYDROcodone/acetaminophen 10/325mg tab PO PRN ×2 (03:45→09:47)
--- NOTE | 2019-04-20 03:52 | NUR ---
pt stated had spasm of rectum and episode of diarrhea. assisted change and clean pt.
[2019-04-20 05:22] LABS: HEMOGLOBIN 13.1 g/dl (14.0-17.9); RED CELL DISTRIBUTION WIDTH 14.9 % (11.5-14.5)
[2019-04-20 05:24] LABS: MEAN CORPUSCULAR HEMOGLOBIN 30.3 PG (27.0-31.0); MEAN CORPUSCULAR HGB CONC 33.6 g/dL (33.0-36.5); MEAN PLATELET VOLUME 11.1 FL (7.4-10.4); PLATELET COUNT 151 X10'3 (140-440); RED BLOOD COUNT 4.33 X10'6 (4.70-6.10); WHITE BLOOD COUNT 10.4 X10'3 (4.5-11.0)
[2019-04-20] MEDS: morphine 4 MG/ML inj SYRINge IV PRN ×2 (05:27→12:48)
--- NOTE | 2019-04-20 06:05 | NUR ---
Patient in room [facility]. I have received report from ANA Seymour and had the opportunity to ask questions and assume patient care.
[2019-04-20 06:30] VITALS: BP 109/59
--- NOTE | 2019-04-20 06:46 | NUR ---
Problems reprioritized. Patient report given, questions answered & plan of care reviewed with ANA Reed.
[2019-04-20 07:21] LABS: ALANINE AMINOTRANSFERASE 19 U/L (12-78); ALKALINE PHOSPHATASE 67 IU/L (46-116); ANION GAP 7 (8-16); ASPARTATE AMINO TRANSFERASE 12 U/L (10-37); BILIRUBIN,TOTAL 0.5 MG/DL (0.1-1.0); BLOOD UREA NITROGEN 13 MG/DL (7-18); CALCIUM 8.2 MG/DL (8.5-10.1); CHLORIDE 108 MMOL/L (99-107); CREATININE 1.63 MG/DL (0.60-1.10); GLUCOSE 129 MG/DL (70-104); POTASSIUM 3.5 MMOL/L (3.5-5.1); SODIUM 140 MMOL/L (135-145); TOTAL CARBON DIOXIDE 25.3 MMOL/L (24-32); TOTAL PROTEIN 6.1 G/DL (6.4-8.2); eGFR 43 ML/MIN
[2019-04-20] MEDS: dextrose 5%-1/2 normal saline 1,000 ML IV SCH (08:43)
[2019-04-20] MEDS: docusate sod 100mg capsule PO SCH (09:35)
[2019-04-20] MEDS: sennosides/docusate sodium tablet PO SCH (09:36)
[2019-04-20] MEDS: bisacodyl 5mg tablet.DR PO SCH (09:36)
[2019-04-20] MEDS: heparin, porcine 5000 units/ml vial SQ SCH (09:37)
[2019-04-20] MEDS: lisinopril 20mg tablet PO SCH (09:44)
[2019-04-20] MEDS: atenolol 50mg tablet PO SCH (09:44)
[2019-04-20] MEDS ORDERED: BISA5TAB10 PO (10:23)
[2019-04-20] MEDS ORDERED: MAGN400O6 PO (10:23)
[2019-04-20] MEDS ORDERED: SENN-166 PO (10:23)
[2019-04-20] MEDS ORDERED: LISI-600 PO (10:23)
[2019-04-20] MEDS ORDERED: COL100C PO (10:23)
[2019-04-20 11:00] VITALS: BP 158/77
--- NOTE | 2019-04-20 14:45 | NUR ---
DC inst provided to pt. IV DC'd, tip intact. All belongings sent w/pt. WC to front lobby.
[2019-04-21 08:19] LABS: PROTEIN S, FREE 73 % (57-157); PROTEIN S, TOTAL 64 % (60-150)
[2019-04-21 13:09] LABS: ANTITHROMBIN ACTIVITY 99 % (75-135); ANTITHROMBIN ANTIGEN 88 % (72-124)
== END 2019-04-20 14:45 | disposition home health service (06) | DRG 344 ==
LOC: ER 21:04 → SUR 3N 04-09 03:28 → CMPBEDREQ 04-09 03:57 → SUR 3N 04-11 17:30
PROVIDERS: ADMIT Internal Medicine; ATTEND Family Medicine
PROC: 0D9N8ZZ Drainage of Sigmoid Colon, Via Natural or Artificial Opening Endoscopic (ICD-10-PCS; principal; 2019-04-14)
DX: K56.41 Fecal impaction (principal); N17.0 Acute kidney failure with tubular necrosis; K92.1 Melena; E87.6 Hypokalemia; Z93.3 Colostomy status; N18.9 Chronic kidney disease, unspecified; I25.10 Atherosclerotic heart disease of native coronary artery without angina pectoris; R19.8 Other specified symptoms and signs involving the digestive system and abdomen; G89.29 Other chronic pain; Z88.8 Allergy status to other drugs, medicaments and biological substances; Z95.1 Presence of aortocoronary bypass graft; Z86.718 Personal history of other venous thrombosis and embolism; Z79.01 Long term (current) use of anticoagulants; I25.2 Old myocardial infarction
CPT/HCPCS: 36415; 45330; 74018; 74176; 80048; 80053; 81479; 83735; 83891; 83894; 83898; 85025; 85027; 85240; 85300; 85301; 85303; 85305; 85306; 85610; 86146; 86147; 87081; 93971; 96365; 96375; 99152; 99285; A4620; G0378; J1644; J2250; J2270; J2405; J2543; J3010; J3480; J7040; Q9963